=== PATIENT | female | born 1970 | race Caucasian/White ===

== ENCOUNTER 2020-12-08 07:40 | Outpatient (REF) | payer OTHER, SELFPAY ==
[2020-12-08 08:03] LABS: COVID-19 Test Negative (Negative)
== END 2020-12-08 07:41 | disposition home or self-care (01) ==
LOC: HO.EMPCOV 07:40
PROVIDERS: Visit Provider Internal Medicine
DX: Z20.822 Contact with and (suspected) exposure to COVID-19 (principal)
CPT/HCPCS: 36415; 87635; C9803

== ENCOUNTER 2021-05-18 10:56 | Emergency (ER) | payer OTHER, SELFPAY ==
--- NOTE | ~2021-05-18 | XR_ITS ---
EXAMINATION: XR CHEST CLINICAL INFORMATION: Upper respiratory infection. COMPARISON: None TECHNIQUE: Frontal view of the chest was obtained. FINDINGS: The lungs are clear. There is no airspace consolidation or groundglass opacity or effusion. The heart is normal in size. The hilar and mediastinal contours are unremarkable. There is a gentle dextrocurvature lower thoracic spine. XR/XR chest 1V IMPRESSION: Unremarkable examination.
[2021-05-18 11:43] VITALS: BP 155/83; PULSE 72; RESP 16; TEMP 36.7; O2SAT 98; BMI 106.2
--- NOTE | 2021-05-18 12:28 | ED.URI ---
HPI - URI/Sore Throat General Chief Complaint: Upper Respiratory Symptoms Stated Complaint: DIFF BREATHING Time Seen by Provider: 05/18/21 12:08 Source: patient Mode of arrival: ambulatory Limitations: no limitations History of Present Illness HPI Narrative: 51-year-old female with a history of allergic rhinitis here with complaints of chronic cough for about 5-6 months which is worsened with activity and at night time. Seen by an search specialist and given montelukast and Rhinocort which patient used until about 3 months ago but discontinued as she did not feel like it was helping with her symptoms. She now feels short of breath with moving around in addition to the cough. No fevers or chills or leg swelling or chest pain. Related Data Previous Rx's Medication Instructions Recorded prednisone 20 mg tablet 60 mg PO DAILY #15 tab 05/18/21 Allergies Allergy/AdvReac Type Severity Reaction Status Date / Time Sulfa (Sulfonamide Allergy Swelling Verified 05/18/21 11:45 Antibiotics) Review of Systems Review of Systems: Yes all other systems are reviewed and are negative Constitutional: Constitutional: Reports no additional constitutional complaints, Denies body ache(s), Denies chills, Denies fever(s), Denies headache(s) and Denies weakness Eyes: Eyes: Reports no additional eye complaints and Denies change in vision ENT: Reports system reviewed and no additional complaints, except as documented, Denies dizziness, Denies headache(s), Denies nasal congestion, Denies nasal discharge and Denies neck pain Cardiovascular: Cardiovascular: Reports no additional cardiovascular complaints, Denies chest pain, Denies leg edema and Reports dyspnea Respiratory: Respiratory: Reports no additional respiratory complaints, Reports cough and Reports dyspnea Gastrointestinal: Gastrointestinal: Reports no additional gastrointestinal complaints, Denies abdominal pain, Denies diarrhea, Denies nausea and Denies vomiting Genitourinary: Genitourinary: Reports no additional female genitourinary complaints and Denies urinary incontinence Musculoskeletal: Musculoskeletal: Reports no additional musculoskeletal complaints, Denies back pain, Denies arthralgias, Denies joint swelling, Denies neck pain, Denies numbness and Denies tingling Integumentary/Breasts: Skin/Breast: Reports system reviewed and no additional complaints, except as docu and Denies rash Neurologic: Denies Abnormal speech present, Denies dizziness, Denies headache(s), Denies numbness, Denies tingling and Denies weakness PMF Past Medical History Attestation statement: The following information was validated with the patient. Source: old records reviewed and nursing notes reviewed Medical History GERD (gastroesophageal reflux disease) Social History Social History Advance Directives: Yes Advance Directives Information Provided: No Advance Directives on File: No Physical Exam Vital Signs: Vital Signs: Last Vital Signs Temp 98.0 F 05/18/21 11:43 Pulse 72 05/18/21 11:43 Resp 16 05/18/21 11:43 BP 155/83 H 05/18/21 11:43 Pulse Ox 98 05/18/21 11:43 Body Mass Index 106.2 Const: General: cooperative, healthy appearing, comfortable and no acute distress Orientation/consciousness: patient oriented x3 Limitations: no limitations HENMT: Head: Yes normal to inspection Ears: hearing grossly normal bilaterally General nose exam: Normal external nose present Face and sinus: Yes normal facial exam Mouth: Normal oral and palatal mucosa present Throat: Yes posterior oropharynx normal Eyes: General: appearance normal, both eyes and all related structures Pupils: Equal, round and reactive pupils present Neck: Neck: Yes normal visual inspection Chest: Chest palpation & inspection: normal inspection of the chest Resp: Other: Mild expiratory wheezing throughout Effort & Inspection: normal respiratory effort Cardio: Rate: regular rate Rhythm: regular rhythm Peripheral pulses: Peripheral pulses 2+ throughout GI: Inspection: Yes normal to inspection Palpation (GI): Soft to palpation and nontender Auscultation: normal bowel sounds Back/Spine/Pelvis: Thoracic/Lumbar Spine: thoracic and lumbar spine normal to inspection Skin: General skin exam: no rashes or lesions noted Neuro: General: patient oriented x3, no focal motor deficits and normal sensation to monofilament Cranial nerves: Yes Equal, round and reactive pupils present Cognition (Neuro): normal cognition Speech: No Abnormal speech present Gait exam (Neuro): Normal gait present Motor exam (neuro): 5/5 motor strength present throughout Extrem: General: Yes normal to inspection, Yes no pedal edema and Yes no calf tenderness Course Course Course Narrative: 51-year-old female with a past medical history of allergic rhinitis here with chronic cough for months now with some shortness of breath with movement. On exam has mild expiratory wheezing. Clinically appears to have asthma although no formal diagnosis given. Did do a trial of albuterol MDI but patient feels like it does not help. Will check chest x-ray, COVID screen. Will trial DuoNeb and reassess -chest x-ray and COVID screen negative. Went to examine the patient. She still has some mild expiratory wheezing but overall is improved. Likely asthma. I recommend patient follow-up with primary care doctor or she likely will need to be on inhaled corticosteroid. Will give her brief prednisone burst and the meantime. Reviewed worrisome signs and symptoms when to return to the emergency department. Comfortable discharge home. MDM - URI/Sore Throat Medical Records Attestation: I reviewed the patient's medical records. Lab Data Attestation: I reviewed the patient's lab results. Labs: Lab Results 05/18/21 Range/Units 12:31 COVID-19 (EVI) Negative (Negative) COVID-19 Clin Com See Note Imaging Data Chest x-ray: Attestation: I personally reviewed and interpreted this imaging study as follows: Radiologist's impression: [address] [address] XRay Report Signed Patient: Aubrie Conde MR#: [id number] : 1970 Acct:[id number] Age/Sex: 51 / F ADM Date: 05/18/21 Loc: .ED Attending Dr: Ordering Physician: Kirstie Mcgrath MD Date of Service: 05/18/21 Procedure(s): XR chest 1V Accession Number(s): [id number] cc: Kirstie Mcgrath MD~ EXAMINATION: XR CHEST CLINICAL INFORMATION: Upper respiratory infection. COMPARISON: None TECHNIQUE: Frontal view of the chest was obtained. FINDINGS: The lungs are clear. There is no airspace consolidation or groundglass opacity or effusion. The heart is normal in size. The hilar and mediastinal contours are unremarkable. There is a gentle dextrocurvature lower thoracic spine. XR/XR chest 1V IMPRESSION: Unremarkable examination. ? Discharge Plan Discharge Clinical Impression: Asthma Patient Disposition: Home, Self-Care Instructions: Asthma (ED) Additional Instructions: Start prednisone tonight Use inhaler 2 puffs every 4-6 hours Your COVID test was negative Follow-up with your primary care doctor as you likely will need a daily controller medication Prescriptions: New prednisone 20 mg tablet 60 mg PO DAILY Qty: 15 RF: 0 Referrals: Will Norman MD [Primary Care Provider] - 2 days Interventions: ED Discharge Assessment Last Done: 05/18/21 13:59 Discharge Date/Time: 05/18/21 13:59
[2021-05-18 12:56] LABS: COVID-19 Test Negative (Negative)
[2021-05-18] MEDS: Albuterol/Iprat 2.5/0.5MG 3 ML AMPUL.NEB INHALE (13:16)
== END 2021-05-18 13:59 | disposition home or self-care (01) ==
PROVIDERS: Nurse Practitioner Family; Emergency Provider Emergency Medicine; PCP Internal Medicine
DX: J45.909 Unspecified asthma, uncomplicated (principal); R06.02 Shortness of breath; Z79.899 Other long term (current) drug therapy; Z20.822 Contact with and (suspected) exposure to COVID-19
CPT/HCPCS: 36415; 71045; 87635; 94640; 99283; 99284

== ENCOUNTER 2021-09-14 09:02 | Outpatient (REF) | payer OTHER, SELFPAY | END 2021-09-14 09:03 | disposition home or self-care (01) | LOC: HO.EMPCOV 09:02 | PROVIDERS: Visit Provider Internal Medicine | DX: Z20.822 Contact with and (suspected) exposure to COVID-19 (principal) | CPT/HCPCS: C9803; U0003; U0005 ==

== ENCOUNTER 2025-02-25 08:13 | Outpatient (AMB) | payer OTHER, SELFPAY ==
--- NOTE | 2025-02-25 08:24 | A.OFFVIS_ITS ---
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 Patient was referred by her PCP for knee pain that has been present for a couple of months. She was referred to physical therapy and an MRI was obtained at [facility]. Today patient reports constant knee pain that has been present for years. Her pain is located at the anterior, lateral, and medial sides of her knee. She attended therapy however this did not help. No other treatments. 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 She has had pain and swelling has been intermittent for a period of time. This does limit her activity with prolonged walking and limits her stairs. She has done physical therapy but states there has not been much relief with that. She has also had an MRI. 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 She has full range of motion with crepitus. Calf supple nontender neurovascularly intact. Office Procedures AMB Joint Injection/Aspiration Joint Injection/Aspiration Primary Site: left knee Prep: site was prepped using aseptic technique, ethochloride spray was applied and injection warnings given Injected: 80 mg of, DepoMedrol, with 8 mL of, 1% plain lidocaine and in the joint Approach Used: anterolateral Procedure: The patient tolerated the procedure well and there was some relief with the local anesthesia Coding - Glenohumeral/Tronchanteric Bursa/Intraarticular Procedure code (CPT) selection complete Results Reviewed Results Reviewed: Xrays were obtained in the office today and personally reviewed by me of the left knee show mild OA Assessment & Plan Assessment & Plan (1) Osteoarthritis of left knee: Code(s): M17.12 - Unilateral primary osteoarthritis, left knee Category: Medical Plan: We discussed options today which include continued conservative management with physical therapy and injections. She did agree to move forward with a left knee cortisone injection which she tolerated well. She will also begin a course of physical therapy to help with strengthening and conditioning exercises. She was also given a prescription for Celebrex to take twice a day for 2 weeks. If symptoms persist or worsen or there is any concerns she will contact our office otherwise follow up as needed. Orders: Orders PT Evaluation and Treatment Today M17.12 - Unilateral primary osteoarthritis, left knee XR knee LT 3V Today M25.562 - Pain in left knee Medications: New celecoxib (Celebrex) 200 mg PO BID 60 caps 3RF 30 days Coding Level of Care Code New Pt Level 3 (99895) Complex EM visit Add On G2211 Diagnoses Osteoarthritis of left knee M17.12 CPT Codes Coding - Joint 7: 56662 - Glenohumeral/Tronchanteric Bursa/Intraarticular ([id number])
[2025-02-25 08:36] VITALS: BMI 50.3
== END 2025-02-25 10:13 | disposition home or self-care (01) ==
LOC: HO.HOS 08:14
PROVIDERS: PCP Internal Medicine; Visit Provider Physician Assistant
DX: M17.12 Unilateral primary osteoarthritis, left knee (principal)
CPT/HCPCS: 20610; 99203

== ENCOUNTER → 2025-02-25 08:17 | Outpatient (BNV) | payer OTHER, SELFPAY | PROVIDERS: Visit Provider Radiology Diagnostic Radiology | DX: M25.562 Pain in left knee (principal) | CPT/HCPCS: 73562 ==

== ENCOUNTER 2025-02-25 08:50 | Outpatient (REF) | payer OTHER, SELFPAY ==
--- NOTE | ~2025-02-25 | XR_ITS ---
CLINICAL HISTORY: M25.562 - Pain in left knee AP view of the bilateral knees and 2 views of the left knee Comparison: None Findings: No fractures or dislocations. Mild bilateral medial compartment joint space narrowing. No joint effusion. No radiopaque foreign body. IMPRESSION: 1. No acute findings. This document has been electronically signed by: Edwin Kennedy MD on 02/26/2025 00:07:58
== END 2025-02-25 08:51 | disposition home or self-care (01) ==
LOC: HO.HOSX 08:50
PROVIDERS: Visit Provider Physician Assistant
DX: M17.12 Unilateral primary osteoarthritis, left knee (principal); M25.562 Pain in left knee
CPT/HCPCS: 20610; 73562; J1010; J2003